=== PATIENT | male | born 1940 | race Caucasian/White ===

== ENCOUNTER → 2017-10-07 | Outpatient (CLI) | payer MEDICARE ==
[~2017-10-07] MED LIST: ALLO300T PO; ALPH300C PO; ASPI-496 PO; ATOR-2 PO; CARB200T13 PO; CARV-39 PO; CHOL5000 PO; LEVO1CAP3 PO; LISI1TAB5 PO; METF500T4 PO; OMEGA 3 PO; PANT40TA5 PO; UBID1CAP52 PO; [UNRECOGNIZED DRUG - OTHER] PO; [UNRECOGNIZED DRUG - OTHER] PO
[2017-10-07 10:39] LABS: ALANINE AMINOTRANSFERASE 42 U/L (12-78); ALBUMIN 3.6 g/dL (3.4-5.0); ANION GAP 7 mmol/L (5-15); CALCIUM 8.9 mg/dL (8.5-10.1); CHLORIDE 105 mmol/L (98-107); CREATININE 0.84 mg/dL (0.7-1.3)
[2017-10-07 10:41] LABS: ALKALINE PHOSPHATASE 89 U/L (45-117); BILIRUBIN,TOTAL 0.5 mg/dL (0.2-1.0); TOTAL PROTEIN 7.1 g/dL (6.4-8.2)
== END ==
LOC: STAR 09:26
PROVIDERS: ATTEND Internal Medicine Gastroenterology
DX: Z01.818 Encounter for other preprocedural examination (principal); D13.0 Benign neoplasm of esophagus; R13.19 Other dysphagia
CPT/HCPCS: 36415; 80053; 93005

== ENCOUNTER 2017-10-13 05:34 | Day surgery (SDC) | payer MEDICARE ==
[~2017-10-13] VITALS: Ht 177.8 cm; Wt 106.7 kg
[2017-10-13] MEDS ORDERED: LACTATED RINGERS 1,000 ML IV SCH (06:24)
[2017-10-13 06:34] VITALS: BP 111/76
[2017-10-13] MEDS ORDERED: KETAMINE 10 MG/ML, 20ML ONE (07:31)
[2017-10-13] MEDS ORDERED: FENTANYL PF 100 MCG/2ML ONE (07:31)
[2017-10-13] MEDS ORDERED: SUCCINYLCHOLINE 20 MG/ML, 10ML ONE (07:35)
[2017-10-13] MEDS ORDERED: PROPOFOL 10 MG/ML, 20ML ONE (07:35)
[2017-10-13] MEDS ORDERED: ROCURONIUM 10 MG/ML,10ML ONE (07:35)
[2017-10-13] MEDS ORDERED: DEXAMETHASONE 4 MG/ML, 5ML ONE (07:35)
[2017-10-13] MEDS ORDERED: VASOPRESSIN 20 UNIT/ML, 1ML ONE (07:35)
[2017-10-13] MEDS ORDERED: MIDAZOLAM 1 MG/ML, 2ML IV PRN (09:00)
[2017-10-13] MEDS ORDERED: LABETALOL 5MG/ML, 20ML IV PRN (09:00)
[2017-10-13] MEDS ORDERED: FENTANYL PF 100 MCG/2ML IV PRN (09:00)
[2017-10-13] MEDS ORDERED: OXYcodone 5 MG/5 ML ORAL.SOL UDC PO PRN (09:00)
[2017-10-13] MEDS ORDERED: ALBUTEROL SULFATE 2.5 MG/3 ML NPPB PRN (09:00)
[2017-10-13] MEDS ORDERED: hydrALAzine 20 MG/ML, 1ML IV PRN (09:00)
[2017-10-13] MEDS ORDERED: PROMETHAZINE 25 MG/ML, 1ML IV PRN (09:00)
[2017-10-13] MEDS ORDERED: HYDROmorphone 1 MG/ML, 1ML IV PRN (09:00)
[2017-10-13] MEDS ORDERED: MEPERIDINE/PF 25MG/0.5ML IVPush PRN (09:00)
[2017-10-13] MEDS ORDERED: ONDANSETRON 2MG/ML, 2ML IVPush PRN (09:00)
== END 2017-10-13 10:25 | disposition home or self-care (01) ==
LOC: OUT 05:34
PROVIDERS: ATTEND Internal Medicine Gastroenterology
DX: Z09 Encounter for follow-up examination after completed treatment for conditions other than malignant neoplasm (principal); K22.8 Other specified diseases of esophagus; K57.30 Diverticulosis of large intestine without perforation or abscess without bleeding; K64.8 Other hemorrhoids; K86.1 Other chronic pancreatitis; K63.5 Polyp of colon; E78.5 Hyperlipidemia, unspecified; I10 Essential (primary) hypertension; M10.9 Gout, unspecified; K21.9 Gastro-esophageal reflux disease without esophagitis; G47.33 Obstructive sleep apnea (adult) (pediatric); Z86.010 Personal history of colon polyps; Z88.8 Allergy status to other drugs, medicaments and biological substances; Z86.711 Personal history of pulmonary embolism
CPT/HCPCS: 43259; 45385; 82962; 88305; J0330; J1100; J2704; J3010; J7120

== ENCOUNTER → 2017-10-28 | Outpatient (CLI) | payer MEDICARE, OTHER | END | disposition home or self-care (01) | LOC: CFH 09:40 | PROVIDERS: ATTEND Internal Medicine Cardiovascular Disease | DX: I35.8 Other nonrheumatic aortic valve disorders (principal); I77.819 Aortic ectasia, unspecified site; I11.9 Hypertensive heart disease without heart failure; E78.5 Hyperlipidemia, unspecified; E11.9 Type 2 diabetes mellitus without complications; Z72.0 Tobacco use | CPT/HCPCS: 93306 ==

== ENCOUNTER 2017-12-09 06:45 | Day surgery (SDC) | payer MEDICARE, OTHER ==
[2017-12-08 09:18] VITALS: BP 99/62
[2017-12-08 10:05] LABS: BASOPHILS # (AUTO) 0.05 x10^3/uL (0-0.1); BASOPHILS % (AUTO) 1 % (0-1); EOSINOPHILS # (AUTO) 0.37 x10^3/uL (0-0.4); EOSINOPHILS % (AUTO) 6 % (1-7); LYMPHOCYTES # (AUTO) 1.48 x10^3/uL (1-3.4); LYMPHOCYTES % (AUTO) 25 % (22-44); MD NO; MEAN CORPUSCULAR HEMOGLOBIN 34.4 pg (27.5-34.5); MEAN CORPUSCULAR HGB CONC 33.6 g/dL (33.2-36.2); MEAN CORPUSCULAR VOLUME 102.3 fL (81-97); MONOCYTES # (AUTO) 0.48 x10^3/uL (0.2-0.8); MONOCYTES % (AUTO) 8 % (2-9); NEUTROPHILS # (AUTO) 3.48 x10^3/uL (1.8-6.8); NEUTROPHILS % (AUTO) 59 % (42-75); PLATELET COUNT 149 x10^3/uL (130-400); RED BLOOD COUNT 4.37 x10^6/uL (4.38-5.82); RED CELL DISTRIBUTION WIDTH 14.7 % (9.4-14.8)
[2017-12-08 10:13] LABS: ANION GAP 7 mmol/L (5-15); CALCIUM 8.8 mg/dL (8.5-10.1); CHLORIDE 102 mmol/L (98-107); CREATININE 0.89 mg/dL (0.7-1.3)
[~2017-12-09] VITALS: Ht 177.8 cm; Wt 106.8 kg
[2017-12-09] MEDS ORDERED: SODIUM CHLORIDE 0.9% 1,000 ML IV ONE (06:55)
[2017-12-09] MEDS ORDERED: ASPIRIN 325 MG TABLET EC PO ONE (07:00)
[2017-12-09] MEDS ORDERED: [UNRECOGNIZED DRUG - OTHER] PO (07:12)
[2017-12-09] MEDS ORDERED: CLOP75TA PO (07:14)
[2017-12-09] MEDS ORDERED: AMLO10TA2 PO (07:14)
[2017-12-09] MEDS ORDERED: MIDAZOLAM 1 MG/ML, 5ML ONE (07:37)
[2017-12-09] MEDS ORDERED: FENTANYL PF 100 MCG/2ML ONE (07:37)
[2017-12-09] MEDS ORDERED: DIPHENHYDRAMINE 50 MG/ML, 1ML ONE (07:37)
[2017-12-09] MEDS ORDERED: LIDOCAINE 2%, 20ML ONE (07:39)
== END 2017-12-09 13:20 ==
LOC: CACL 06:45
PROVIDERS: ATTEND Internal Medicine Cardiovascular Disease
DX: I25.10 Atherosclerotic heart disease of native coronary artery without angina pectoris (principal); I10 Essential (primary) hypertension; E11.9 Type 2 diabetes mellitus without complications; E66.9 Obesity, unspecified; E78.5 Hyperlipidemia, unspecified; Z88.8 Allergy status to other drugs, medicaments and biological substances
CPT/HCPCS: 36415; 80048; 85025; 93458; J1200; J2250; J3010; J3490; 99156; 99157; C1769; C1894; Q9967

== ENCOUNTER 2017-12-10 13:24 | Emergency (ER) | payer MEDICARE, OTHER ==
[~2017-12-10] VITALS: Ht 177.8 cm; Wt 108.8 kg
[~2017-12-10 13:24] MED LIST changes: +AMLO10TA2 PO; +CLOP75TA PO; +[UNRECOGNIZED DRUG - OTHER] PO
[2017-12-10 13:36] VITALS: BP 123/73
[2017-12-10] MEDS ORDERED: BACITRACIN ZINC OINT 500U/GM, 0.9 GM ONE (14:47)
== END 2017-12-10 15:46 | disposition home or self-care (01) ==
LOC: ED 14:48
DX: R58 Hemorrhage, not elsewhere classified (principal)
CPT/HCPCS: 99281

== ENCOUNTER → 2018-10-31 | Outpatient (CLI) | payer MEDICARE, OTHER ==
[~2018-10-31] MED LIST changes: -AMLO10TA2 PO; +AMLO10TA8 PO; +METF500T17 PO; -METF500T4 PO
== END | disposition home or self-care (01) ==
LOC: CVU 14:29
PROVIDERS: ATTEND Internal Medicine Cardiovascular Disease
DX: R42 Dizziness and giddiness (principal); I71.2 Thoracic aortic aneurysm, without rupture; I10 Essential (primary) hypertension; E11.9 Type 2 diabetes mellitus without complications; F17.210 Nicotine dependence, cigarettes, uncomplicated
CPT/HCPCS: 0399T; 93306

== ENCOUNTER → 2018-12-19 | Outpatient (CLI) | payer MEDICARE, OTHER | END | disposition home or self-care (01) | LOC: RAD 16:28 | PROVIDERS: ATTEND Family Medicine | DX: K57.32 Diverticulitis of large intestine without perforation or abscess without bleeding (principal); N28.89 Other specified disorders of kidney and ureter | CPT/HCPCS: 74176 ==

== ENCOUNTER 2019-10-11 12:20 | Outpatient (CLI) | payer MEDICARE, OTHER ==
[~2019-10-11 12:20] MED LIST changes: +LISI1TAB19 PO; -LISI1TAB5 PO; +REGADENOSON 0.4 MG/5 ML SYRINGE ONE
[2019-12-11] MEDS ORDERED: CARV3.1212 PO (10:47)
[2019-12-11] MEDS ORDERED: BACL-19 PO (10:47)
[2019-12-11] MEDS ORDERED: NAPR220T77 PO (10:47)
[2019-12-11] MEDS ORDERED: LISI-167 PO (10:47)
[2019-12-11] MEDS ORDERED: TRIA10.8 NAS (10:48)
[2019-12-11] MEDS ORDERED: UMEC1DIS INH (10:48)
[2019-12-11] MEDS ORDERED: POLY17PO5 PO (10:48)
[2019-12-11] MEDS ORDERED: SENN-52 PO (10:48)
[2019-12-11] MEDS ORDERED: CHLO25TA PO (10:50)
== END 2019-10-11 23:59 | disposition home or self-care (01) ==
LOC: CFH 12:20
PROVIDERS: ATTEND Internal Medicine Cardiovascular Disease
DX: I36.1 Nonrheumatic tricuspid (valve) insufficiency (principal); I11.9 Hypertensive heart disease without heart failure; E78.5 Hyperlipidemia, unspecified; E11.9 Type 2 diabetes mellitus without complications; F17.200 Nicotine dependence, unspecified, uncomplicated
CPT/HCPCS: 93306; 93356; J2785

== ENCOUNTER 2019-10-15 08:07 | Outpatient (CLI) | payer MEDICARE, OTHER ==
[~2019-10-15 08:07] MED LIST changes: -REGADENOSON 0.4 MG/5 ML SYRINGE ONE
[2019-10-15] MEDS ORDERED: REGADENOSON 0.4 MG/5 ML SYRINGE ONE (15:56)
== END 2019-10-15 23:59 | disposition home or self-care (01) ==
LOC: CFH 08:07
PROVIDERS: ATTEND Internal Medicine Cardiovascular Disease
DX: R07.89 Other chest pain (principal)
CPT/HCPCS: 78452; 93017; A9502; J2785

== ENCOUNTER 2019-12-14 08:07 | Observation (INO) | payer MEDICARE, OTHER ==
[2019-12-11 10:50] VITALS: BP 139/78
[~2019-12-14] VITALS: Ht 177.8 cm; Wt 105.6 kg
[~2019-12-14 08:07] MED LIST changes: +BACL-19 PO; +CARV3.1212 PO; +CHLO25TA PO; +LISI-167 PO; +NAPR220T77 PO; +POLY17PO5 PO; +SENN-52 PO; +TRIA10.8 NAS; +UMEC1DIS INH
[2019-12-14] MEDS ORDERED: FENTANYL PF 250 MCG/5ML ONE (08:36)
[2019-12-14] MEDS ORDERED: CEFAZOLIN PMX 1GM/50ML 50 ML ONE (08:36)
[2019-12-14] MEDS ORDERED: MIDAZOLAM 1 MG/ML, 5ML ONE (08:36)
[2019-12-14] MEDS ORDERED: LIDOCAINE 1%, 20ML ONE (08:36)
[2019-12-14] MEDS ORDERED: CEFAZOLIN 1,000 MG ONE (08:37)
[2019-12-14] MEDS ORDERED: SODIUM CHLORIDE 0.9% 1,000 ML IV SCH (09:00)
[2019-12-14 09:04] LABS: BASOPHILS # (AUTO) 0.03 x10^3/uL (0-0.1); BASOPHILS % (AUTO) 1 % (0-1); EOSINOPHILS # (AUTO) 0.46 x10^3/uL (0-0.4); EOSINOPHILS % (AUTO) 9 % (1-7); LYMPHOCYTES # (AUTO) 1.07 x10^3/uL (1-3.4); LYMPHOCYTES % (AUTO) 22 % (22-44); MD NO; MEAN CORPUSCULAR HEMOGLOBIN 35.3 pg (27.5-34.5); MEAN CORPUSCULAR HGB CONC 33.4 g/dL (33.2-36.2); MEAN CORPUSCULAR VOLUME 105.9 fL (81-97); MEAN PLATELET VOLUME 8.1 fL (7.4-10.4); MONOCYTES # (AUTO) 0.43 x10^3/uL (0.2-0.8); MONOCYTES % (AUTO) 9 % (2-9); NEUTROPHILS # (AUTO) 2.86 x10^3/uL (1.8-6.8); NEUTROPHILS % (AUTO) 59 % (42-75); PLATELET COUNT 146 x10^3/uL (130-400); RED BLOOD COUNT 3.69 x10^6/uL (4.38-5.82); RED CELL DISTRIBUTION WIDTH 15.7 % (9.4-14.8)
[2019-12-14 09:44] LABS: ANION GAP 3 mmol/L (5-15); CALCIUM 8.3 mg/dL (8.5-10.1); CHLORIDE 108 mmol/L (98-107); CREATININE 1.01 mg/dL (0.7-1.3)
[2019-12-14] MEDS ORDERED: NAPROXEN SODIUM 220 MG HOMEMEDPO PRN (10:30)
[2019-12-14] MEDS ORDERED: BACLOFEN 10 MG TABLET PO PRN (10:30)
[2019-12-14] MEDS ORDERED: ACETAMINOPHEN 325 MG TABLET PO PRN (10:30)
[2019-12-14] MEDS ORDERED: Hold all anticoagulants for 24 hours MC PRN (10:30)
[2019-12-14] MEDS ORDERED: POLYETHYLENE GLYCOL 17 GM PACKET PO PRN (10:30)
[2019-12-14 12:48] VITALS: BP 127/76
[2019-12-14 15:00] VITALS: BP 114/68
[2019-12-14] MEDS: CEFAZOLIN PMX 1GM/50ML 50 ML IVPB SCH (16:26)
[2019-12-14 18:38] VITALS: BP 146/77
[2019-12-14] MEDS: SODIUM CHLORIDE FLUSH 10ML SYR IVF SCH (21:00)
[2019-12-14] MEDS: TEMPLATE NON-FORMULARY MED. (Levomefolate/B6/B12/Algal Oil** (Metanx Capsule**) 1 TAB) HOMEMEDPO SCH (21:00)
[2019-12-14] MEDS: LISINOPRIL 10 MG TABLET PO SCH (21:00)
[2019-12-14] MEDS: CARVEDILOL 3.125 MG TABLET PO SCH (21:00)
[2019-12-14] MEDS: CARBAMAZEPINE XR 200 MG TABLET PO SCH (21:00)
[2019-12-14] MEDS ORDERED: ATORVASTATIN 80 MG TABLET PO SCH (21:00)
[2019-12-14] MEDS: SENNA/DOCUSATE TABLET PO SCH (21:00)
[2019-12-14] MEDS: metFORMIN 500 MG TABLET PO SCH (21:00)
[2019-12-15] MEDS: CEFAZOLIN PMX 1GM/50ML 50 ML IVPB SCH ×2 (00:56→07:38)
[2019-12-15 01:02] VITALS: BP 133/79
[2019-12-15 06:52] VITALS: BP 146/82
[2019-12-15] MEDS: SENNA/DOCUSATE TABLET PO SCH (09:00)
[2019-12-15] MEDS ORDERED: PANTOPRAZOLE 40MG TABLET PO SCH (09:00)
[2019-12-15] MEDS: TEMPLATE NON-FORMULARY MED. (Levomefolate/B6/B12/Algal Oil** (Metanx Capsule**) 1 TAB) HOMEMEDPO SCH (09:00)
[2019-12-15] MEDS ORDERED: TEMPLATE NON-FORMULARY MED. (Umeclidinium Brm/Vilanterol Tr (Anoro Ellipta 62.5-25 Mcg Inh HOMEINH SCH (09:00)
[2019-12-15] MEDS ORDERED: ASPIRIN 81 MG TABLET EC PO SCH (09:00)
[2019-12-15] MEDS ORDERED: ALLOPURINOL 300 MG TABLET PO SCH (09:00)
[2019-12-15] MEDS ORDERED: FLUTICASONE NASAL SPRAY 16GM NAS SCH (09:00)
[2019-12-15] MEDS: LISINOPRIL 10 MG TABLET PO SCH (09:07)
[2019-12-15] MEDS: metFORMIN 500 MG TABLET PO SCH (09:07)
[2019-12-15] MEDS: CARVEDILOL 3.125 MG TABLET PO SCH (09:08)
[2019-12-15] MEDS: CARBAMAZEPINE XR 200 MG TABLET PO SCH (09:10)
[2019-12-15] MEDS: SODIUM CHLORIDE FLUSH 10ML SYR IVF SCH (09:11)
== END 2019-12-15 09:57 | disposition home or self-care (01) ==
LOC: CACL 08:07 → ORIP 10:14 → 5SO 11:57 → DCLOUNGE 12-15 09:51
PROVIDERS: ADMIT Internal Medicine Cardiovascular Disease; ATTEND Internal Medicine Cardiovascular Disease
DX: I49.5 Sick sinus syndrome (principal); I42.9 Cardiomyopathy, unspecified; E78.5 Hyperlipidemia, unspecified; I25.10 Atherosclerotic heart disease of native coronary artery without angina pectoris; E66.9 Obesity, unspecified; G47.33 Obstructive sleep apnea (adult) (pediatric); I77.819 Aortic ectasia, unspecified site; E11.40 Type 2 diabetes mellitus with diabetic neuropathy, unspecified; I26.99 Other pulmonary embolism without acute cor pulmonale; F17.210 Nicotine dependence, cigarettes, uncomplicated; M54.2 Cervicalgia; G89.29 Other chronic pain; Z79.899 Other long term (current) drug therapy
CPT/HCPCS: 33208; 36415; 71045; 71046; 80048; 85025; 93005; 96365; 96366; 99156; C1779; C1785; C1892; G0378; J0690; J2250; J3010; J3490

== ENCOUNTER 2020-10-17 12:33 | Outpatient (CLI) | payer MEDICARE, OTHER ==
[~2020-10-17 12:33] MED LIST changes: +ALLOPURINOL 300 MG TABLET PO SCH; +AMLO-211 PO; -AMLO10TA8 PO; +ATORVASTATIN 80 MG TABLET PO SCH; +BACLOFEN 10 MG TABLET PO PRN; +CARBAMAZEPINE XR 200 MG TABLET PO SCH; +CARVEDILOL 3.125 MG TABLET PO SCH; -LISI1TAB19 PO; +LISI1TAB39 PO; +LISINOPRIL 10 MG TABLET PO SCH; -PANT40TA5 PO; +PANT40TA6 PO; +PANTOPRAZOLE 40MG TABLET PO SCH; +PLEASE ENTER HEIGHT AND WEIGHT MC SCH; +POLYETHYLENE GLYCOL 17 GM PACKET PO PRN; +SENNA/DOCUSATE TABLET PO SCH; +metFORMIN 500 MG TABLET PO SCH
== END 2020-10-17 23:59 | disposition home or self-care (01) ==
LOC: CVU 12:33
PROVIDERS: ATTEND Internal Medicine Cardiovascular Disease
DX: I08.2 Rheumatic disorders of both aortic and tricuspid valves (principal); E11.9 Type 2 diabetes mellitus without complications; I11.9 Hypertensive heart disease without heart failure; I71.2 Thoracic aortic aneurysm, without rupture
CPT/HCPCS: 93306